=== PATIENT | male | born 1970 | race Caucasian/White ===

== ENCOUNTER 2022-11-25 12:37 | Day surgery (SDC) | payer BC ==
[~2022-11-25] VITALS: Ht 185.4 cm; Wt 83.1 kg
[2022-11-25] MEDS ORDERED: LISI20 PO (12:50)
[2022-11-25 14:18] VITALS: BP 101/70
== END 2022-11-25 14:19 | disposition home or self-care (01) ==
LOC: ORSCSDS 12:37
PROVIDERS: Internal Medicine Gastroenterology
PROC: 0DJD8ZZ Inspection of Lower Intestinal Tract, Via Natural or Artificial Opening Endoscopic (ICD-10-PCS; principal; 2022-11-25 14:00)
DX: Z12.11 Encounter for screening for malignant neoplasm of colon (principal); Z79.899 Other long term (current) drug therapy
CPT/HCPCS: J2704; J7120